=== PATIENT | female | born 1990 | race African-American/Black ===

== ENCOUNTER 2016-09-17 12:18 | Emergency (ER) | payer MEDICAID ==
[~2016-09-17] VITALS: Ht 172.7 cm; Wt 70.8 kg
[~2016-09-17 12:18] MED LIST: KENALOG 0.025%15 GM APPLIC; KENALOG1 APPLIC TOPIC; VISTARIL25 M1 PO
[2016-09-17] MEDS ORDERED: Bacitracin Oint UD TOPIC ONE (13:30)
[2016-09-17] MEDS ORDERED: Lidocaine 1% 10mg/ml/Epi 0.005mg/ml 30ml vial INJ ONE (13:30)
[2016-09-17 13:43] VITALS: BP 98/62
[2016-09-17] MEDS ORDERED: CLINDAMYCIN HC300 MG ORAL (14:00)
[2016-09-17] MEDS ORDERED: BACTRIM 400-801 EACH ORAL (14:00)
[2016-09-17 14:19] VITALS: BP 98/62
--- NOTE | 2016-09-17 15:43 | Emergency Room Report ---
History of Present Illness General Chief Complaint: Skin Rash/Abscess Source: Patient Present Illness HPI The patient is a 26-year-old female presenting for possible infection of the right face. The patient noticed pain and swelling 4 days prior which has been increasing daily. The patient states that she noticed a white to yellow discharge this morning from the area. Pain is described as a 10 out of 10 dull ache is worse with touch. Pain does not radiate. The patient denies any other symptoms including nausea, vomiting, fever, chills, cough, neck pain or stiffness, dental pain Allergies: Coded Allergies: PENICILLIN G (Verified Allergy, Unknown, 09/17/16) Patient History Past Medical History: see triage record Pertinent Family History: none Last Menstrual Period: 09/05/16 Now: No Reviewed Nursing Documentation: PMH: Agreed, PSxH: Agreed Nursing Documentation-PMH Past Medical History: No Stated History Review of Systems All Other Systems: negative except mentioned in HPI Physical Exam Vital Signs Date Time Temp Pulse Resp B/P Pulse Ox O2 Delivery O2 Flow Rate FiO2 09/17/16 12:44 98.2 67 16 98/62 100 Room Air Sp02 EP Interpretation: reviewed, normal General Appearance: no apparent distress, alert, GCS 15, non-toxic Head: normocephalic, atraumatic ENT: hearing grossly normal, normal pharynx, no angioedema, normal voice, uvula midline Neck: full range of motion, supple/symm/no masses Genitourinary: normal inspection, no CVA tenderness Musculoskeletal: back normal, gait/station normal, normal range of motion, non- tender Neurologic: alert, oriented x3, responsive, motor strength/tone normal, sensory intact, speech normal Psychiatric: judgement/insight normal, memory normal, mood/affect normal, no suicidal/homicidal ideation Skin: warm/dry, well hydrated, other - 2cm abscess to R face superior to mandible. Eyrthema. TTP. Fluctuant. Central opening. Lymphatic: no adenopathy Procedures Incision and Drainage Incision and Drainage : Consent: Verbal Site: R face Blade Size: 11 I & D Procedure: betadine prep, sterile drapes applied, sterile dressing applied Wound Location: face Wound's Depth, Shape: superficial Wound Length (cm): 2 Wound Explored: contaminated Irrigated w/ Saline (ccs): 100 Anesthesia: 1% Lidocaine, Lidocaine w/ Epi Volume Anesthetic (ccs): 2 Splint Applied?: No Sling Applied?: No Patient Tolerated: Well Complications: None Medical Decision Making PA Attestation Dr. Stack is my supervising physician. Patient management was discussed with my supervising physician Diagnostic Impression: Primary Impression: Abscess ER Course The patient is a 26-year-old female presenting for possible infection of the right face Differential diagnoses considered but not limited to: abscess, cellulitis, insect bite PE: vitals WNL NAD. 2cm abscess to R face superior to mandible. Erythema. TTP. Fluctuant. Central opening. Betadine prep was used to clean the skin and surrounding area. One percent lidocaine without epinephrine was used to anesthetize the are of planned incision. A #11 blade was used to make an incision in the central area of fluctuance approximately 1/3 the size of the diameter of the abscess. Once the incision was made, purulent material was expressed with blood. Blunt dissection was then used to release loculations and expressed more purulent material. Once only blood appeared to be expressed from the incision, normal saline was used to irrigate the inside of the abscess. The wound was then cleaned and sterile dressing applied with bacitracin. The pt is DC'ed home with prescription for clindamycin and bactrim DS. Pt will FU with PMD. ER precautions given Last Vital Signs Date Time Temp Pulse Resp B/P Pulse Ox O2 Delivery O2 Flow Rate FiO2 09/17/16 14:19 98.2 65 16 98/62 100 Room Air Status: improved Disposition: HOME, SELF-CARE Condition: Improved Scripts Clindamycin Hcl (CLINDAMYCIN HCL) 300 Mg Capsule 300 MG ORAL Q8HR, #21 CAP Prov: PRERNA BOWERS.AEfife 09/17/16 Sulfamethoxazole/Trimethoprim (BACTRIM 400-80 MG TABLET*) 1 Each Tablet 1 TAB ORAL TWICE A DAY, #14 TAB Prov: PRERNA BOWERS.AEffie 09/17/16 Patient Instructions: Abscess Additional Instructions: I discussed my findings with the patient. All questions and concerns have been answered. Treatment and medication compliance have been addressed. I advised the patient that they need to follow up with PMD in 3-5 days. Return to ED if symptoms worsen, new symptoms arise, or if needed for any reason. Patient verbalized understanding of discharge instructions. PRERNA BOWERS Sep 17, 2016 15:43
== END 2016-09-17 14:20 | disposition home or self-care (01) ==
LOC: EMR 13:24
DX: L02.01 Cutaneous abscess of face (principal); Z88.0 Allergy status to penicillin
CPT/HCPCS: 10060